=== PATIENT | male | born 1945 | race Caucasian/White ===

== ENCOUNTER 2020-03-04 05:45 | Inpatient (IN) | payer MEDICARE, OTHER ==
[2020-03-04] VITALS (46 sets, daily range): BP systolic 83–124; BP diastolic 39–72
[~2020-03-04] VITALS: Ht 175.3 cm; Wt 65.3 kg
[~2020-03-04 05:45] MED LIST: METO-624 PO; UNK BP MED; [UNRECOGNIZED DRUG - CODE] PO
--- NOTE | 2020-03-04 05:55 | NUR ---
PT TAKEN TO BED 11
--- NOTE | 2020-03-04 05:57 | NUR ---
Dr. Porter examining patient.
--- NOTE | 2020-03-04 06:00 | NUR ---
74M PT PRESENTS TO ED WITH C/O RAPID HEART RATE ON SET AROUND 0100 AM THIS MORNING. PT SVT @189. RADIAL PULSES PALPABLE AND STRONG. PT PLACED ON CARDIAC MONITORING AND EKG MONITORING. ACLS PRECAUTIONS IN PLACE. PT HAS HX OF A FIB NKA
--- NOTE | 2020-03-04 06:04 | NUR ---
HEART RATE 189. TRACE RHODES MADE AWARE.
[2020-03-04] MEDS ORDERED: NACL 0.9% 1,000 ML IV ONE ×3 (06:05→08:35)
[2020-03-04] MEDS ORDERED: ADENOSINE 6 MG/2 ML VIAL IVP ONE ×3 (06:05→06:45)
--- NOTE | 2020-03-04 06:10 | NUR ---
TRACE RHODES AT BEDSIDE.
--- NOTE | 2020-03-04 06:20 | NUR ---
ACLS PRECAUTIONS IN PLACE.
--- NOTE | 2020-03-04 06:21 | NUR ---
X-Ray at bedside.
--- NOTE | 2020-03-04 06:30 | NUR ---
ADENOSINE 6MG IVP ADMINISTERED. INEFFECTIVE AND HEART RATE SAME. NADR
[2020-03-04 06:33] LABS: BASOPHILS # (AUTO) 0.1 K/uL (0.00-0.22); BASOPHILS % (AUTO) 0.6 % (0.0-2.0); EOSINOPHILS # (AUTO) 0.1 K/uL (0-0.4); EOSINOPHILS % (AUTO) 1.3 % (0.0-4.0); HEMATOCRIT 43.6 % (36-52); HEMOGLOBIN 14.8 g/dL (12.0-18.0); LYMPHOCYTES % (AUTO) 19.7 % (20.5-51.1); MEAN CORPUSCULAR HEMOGLOBIN 32 pg (27-31); MEAN CORPUSCULAR HGB CONC 34 g/dL (33-37); MEAN CORPUSCULAR VOLUME 95.1 fL (80-94); MONOCYTES # (AUTO) 0.6 K/uL (0.8-1.0); MONOCYTES % (AUTO) 5.9 % (1.7-9.3); NEUTROPHILS # (AUTO) 7.4 K/uL (1.8-7.7); NEUTROPHILS % (AUTO) 72.5 % (42.2-75.2); PLATELET COUNT (AUTO) 272 K/uL (140-450); RED BLOOD CELL COUNT(AUTO) 4.59 MIL/uL (4.20-6.10); RED CELL DISTRIBUTION WIDTH 13.5 % (11.6-13.7); WHITE BLOOD COUNT (AUTO) 10.2 K/uL (4.8-10.8)
--- NOTE | 2020-03-04 06:35 | NUR ---
ADENOSINE 12MG IVP GIVEN. INEFFECTIVE AND HEART RATE SAME AT SVT 170-180s. NADR
[2020-03-04 06:41] LABS: ANION GAP 15.9 (8-16); CARBON DIOXIDE 24.2 mmol/L (21-32); CHLORIDE 108 mmol/L (98-107); CREATININE 1.2 mg/dL (0.6-1.3); GLUCOSE 130 mg/dL (74-106); POTASSIUM 4.1 mmol/L (3.5-5.1); SODIUM SERUM 144 mmol/L (136-145); UREA NITROGEN, BLOOD 15 mg/dL (7-18)
[2020-03-04] MEDS ORDERED: METOPROLOL 5 MG/5 ML VIAL IVP ONE ×3 (06:45→07:15)
[2020-03-04 06:48] LABS: ALBUMIN 3.8 g/dL (3.4-5.0); ASPARTATE AMINOTRANSFERASE 15 U/L (15-37); TOTAL BILIRUBIN 0.2 mg/dL (0.0-1.0)
[2020-03-04 06:56] LABS: PROTHROMBIN TIME 8.9 secs (10.8-13.4)
--- NOTE | 2020-03-04 06:59 | NUR ---
BP 92/49. TRACE RHODES MADE AWARE.
--- NOTE | 2020-03-04 07:14 | NUR ---
REPORT RECIEVED FROM TRINA RN, PT RESTING IN BED. PT ALERT AND AWAKE. FULL AND CLEAR SPEECH. HR CONTINUES TO FLUNCUATE BETWEEN 150S AND 180S PT STATES HISTORY OF APPENDECTOMY, PROSTATE CANCER, AND AFIB
--- NOTE | 2020-03-04 07:14 | NUR ---
VERBAL ORDER TO GIVE METROPOLOL 2.5 MG IVP INSTEAD OF 5 MG
--- NOTE | 2020-03-04 07:23 | NUR ---
CHANGE OF SHIFT REPORT GIVEN TO SHAWNEE ALVARADO.
--- NOTE | 2020-03-04 07:36 | NUR ---
DR DAWSON MADE AWARE OF PTS CURRENT HR-159
--- NOTE | 2020-03-04 07:42 | NUR ---
Dr. Jama is evaluating the patient at bedside.
[2020-03-04] MEDS ORDERED: DILTIAZEM 125 MG in DEXTROSE 5% 100 ML IV ONE (07:45)
[2020-03-04] MEDS ORDERED: DILTIAZEM 125 MG/25 ML VIAL IV ONE (07:51)
--- NOTE | 2020-03-04 08:05 | NUR ---
CARDIAZEM CONTINUOUS DRIP STARTED
--- NOTE | 2020-03-04 08:27 | NUR ---
NADR, PT HAS NO COMPLAINTS OF SOB OR CP. PAIN 0/10
--- NOTE | 2020-03-04 08:30 | NUR ---
BP 81/52, DR DAWSON MADE AWARE, VERBAL ORDER FOR ANOTHER NACL BOLUS
[2020-03-04] MEDS ORDERED: METO-747 PO (08:44)
[2020-03-04] MEDS ORDERED: AMLO5TAB PO (08:44)
[2020-03-04] MEDS ORDERED: SYN.075 PO (08:44)
--- NOTE | 2020-03-04 09:10 | NUR ---
PT IN BED. HR NOW 140-150S. BP 95/48. PT HAS NO COMPLAINTS AT THIS TIME. TALKING ON PHONE.
--- NOTE | 2020-03-04 09:30 | NUR ---
CARDIAZEM TITRATED BY ADDITIONAL 5MG/HR, NOW RUNNING AT 15MG/HR
--- NOTE | 2020-03-04 09:57 | NUR ---
hr 120s-130s
[2020-03-04] MEDS ORDERED: HYDROcodone/APAP 5/325 MG 1 TAB TAB PO PRN (10:05)
[2020-03-04] MEDS ORDERED: ALUMINUM HYD/MAG/SIMETHICONE 30 ML UDC PO PRN (10:05)
[2020-03-04] MEDS ORDERED: ONDANSETRON 4 MG/2 ML VIAL IVP PRN (10:05)
[2020-03-04] MEDS ORDERED: ACETAMINOPHEN 325 MG TAB PO PRN (10:05)
[2020-03-04] MEDS ORDERED: NITROGLYCERIN 0.4 MG TAB SL PRN (10:05)
--- NOTE | 2020-03-04 10:40 | NUR ---
Patient will be admitted to [facility]. Admited to ICU BED 5. Belongings list completed. Report to HALEY ALVARADO. ANOOP RUNNING AT 15MG/HR UPON ADMIT BP STABLE, HR 130'S
--- NOTE | 2020-03-04 10:40 | NUR ---
RECEIVED PT FROM ED. PT IS AWAKE AND ALERT. A&OX4. PT ABLE TO FOLLOW SIMPLE COMMANDS, ABLE TO SPEAK. GCS=15. EYES PERRL, 3MM. PT PLACED ON BED W/ HOB 30 DEGREES. PT HAS CLEAR LUNG SOUNDS, ON ROOM AIR. EQUAL RISE AND FALL OF THE CHEST. +2 RADIAL PULSES FELT. PT IS A-FIB ON MONITOR. HR RANGING BETWEEN 120-130. B/P 103/63 RR 19 SPO2 95%. TEMPERATURE 97.8 ORAL. PT HAS LEFT AND RIGHT AC PIV 20G. BOTH LINES ARE ASYMPTOMATIC, PATENT, INTACT. CARDIZEM DRIP RUNNING AT 15MG/HR. PT ABLE TO SWALLOW. BOWEL SOUNDS PRESENT. PT ABLE TO MOVE ALL FOUR EXTREMITIES W/ EASE. BED IS LOCKED IN LOW POSITION. CALL LIGHT PLACED WITHIN REACH. WILL CONTINUE TO MONITOR.
--- NOTE | 2020-03-04 10:52 | NUR ---
DISCHARGE PLANNING: THIS IS A 74 Y/O MALE PATIENT FROM HOME, WHO CAME IN DUE TO RACING HEART RATE AND CHEST PRESSURE. PAST MEDICAL HISTORY INCLUDE CARDIAC DISORDER, HTN. INITIAL DIAGNOSIS OF A FIB RVR. CURRENT LABS INCLUDE WBC 10.2, H/H 14.8/43.6, NA/K 144/4.1, BUN/CREA 15/1.2 AND MAG 1.6. ON CARDIZEM DRIP - AL 132. ON ROOM AIR - O2 SAT 95%. CARDIO CONSULT IN PLACE. DC PLAN PENDING ON PATIENT'S RESPONSE TO TREATMENT. Addendum: 03/05/20 at 1052 by Layla Miles RECEIVED A CALL FROM MARISSA BERNAL. UPDATED HER OF THE PATIENT'S CONDITION. SHE STATED IF WILL NEED HELP WITH DC, TO LET HER KNOW. INFORMED HER THAT PATIENT IS FOR POSSIBLE DOWNGRADE TO [facility] TODAY AND WILL UPDATE HER WITH DC PLANNING. Addendum: 03/05/20 at 1522 by Layla Miles CM RECEIVED A CALL FROM MARISSA BERNAL TO PROVIDE BATTERY INSPECTOR FOR OUT PATIENT FOLLOW UP DR. PARTHA MARTIN AT [phone], ADDRESS TO THE CLINIC [address], [address], [place] [address] AND PATIENT IS ENROLLED WITH THEIR [facility]ARE CLINIC AT [address] [facility], [address], [place] [address]; PHONE NUMBER [phone]. AUTH FOR CARDIO [id number] AND FOR CARE [facility] CLINIC [id number]. CONTACTED DR. MARTIN'S OFFICE, ABLE TO SPEAK TO [employer]. SHE STATED TO CALL BACK THE OFFICE IN 5 MINS. CONTACTED [facility], NO ANSWER. LEFT MESSAGE. WILL FOLLOW UP. Addendum: 03/05/20 at 1528 by Layla Miles CM PRIMARY RN MARSHA MADE AWARE THAT I TRIED CALLING DR. MARTIN'S OFFICE AND THE [facility]IN[facility] TO SET UP PDA'S. PROVIDED HIM THE PHONE NUMBER'S TO BOTH CLINICS TO PROVIDE TO THE PATIENT. Addendum: 03/05/20 at 1530 by Layla Miles CM CALLED BACK DR. MARTIN'S CLINIC AGAIN, NO ANSWER. LEFT MESSAGE AND CONTACT INFO. Addendum: 03/06/20 at 0850 by Layla Miles CM CONTACTED MARISSA GALL[facility] AT [phone], NO ANSWER. LEFT MESSAGE. Addendum: 03/06/20 at 0940 by Lisbeth Almazan CM SPOKE WITH YAJAIRA TO SCHEDULE PATIENT AN APPOINTMENT WITH BATTERY INSPECTOR DR. MARTIN. MARCH 17, 2020 AT 2:00 PM. IN OFFICE VISIT [address] [place], [place] [phone]. WILL NOTIFY PATIENT AND GIVE APPOINTMENT REMINDER. Addendum: 03/06/20 at 0957 by Lisbeth Almazan NOTIFIED PATIENTS BROTHER OF APPOINTMENT AND PUT AN APPOINTMENT REMINDER IN THE PATIENTS CHART.
[2020-03-04] MEDS ORDERED: HEPARIN PER PHARMACY MC PRN (11:40)
[2020-03-04] MEDS ORDERED: NACL 0.9% 250 ML IV SCH (11:40)
[2020-03-04] MEDS ORDERED: hePARIN / DEXT 5% PREMIX 250 ML IV SCH ×2 (11:40→13:00)
[2020-03-04] MEDS: ASPIRIN 81 MG TAB.CHEW PO SCH (12:06)
--- NOTE | 2020-03-04 12:20 | NUR ---
PATIENT HAS BEEN SCREENED AND CATEGORIZED HIGH NUTRITION RISK. PATIENT WILL BE SEEN WITHIN 1-2 DAYS OF ADMISSION. 03/04/20-03/05/[address]
[2020-03-04] MEDS ORDERED: MAG SULF 2000 MG/WATER PREMIX 50 ML IV SCH (13:00)
--- NOTE | 2020-03-04 13:15 | NUR ---
PT STARTED ON MAGNESIUM AND HEPARIN DRIP. NO APPARENT DISTRESS NOTED. PT WATCHING TELEVISION. VSS. HOB 30 DEGREES. BED IS LOCKED. CALL LIGHT WITHIN REACH. WILL CONTINUE TO MONITOR
--- NOTE | 2020-03-04 13:46 | NUR ---
03/04/20 RD INITIAL ASSESSMENT COMPLETED PLEASE REFER TO NUTRITION ASSESSMENT UNDER CARE ACTIVITY FOR ESTIMATED NUTRITIONAL NEEDS. 1. CONTINUE CARDIAC DIET TOLERATED 2. RECOMMEND ENSURE BID 3. ENCOURAGE INCREASING PO INTAKE 4. RD TO FOLLOW-UP 2-3 DAYS, HIGH RISK LUZMA SYED, RD
[2020-03-04] MEDS: DILTIAZEM 125 MG in DEXTROSE 5% 100 ML IV SCH (17:16)
--- NOTE | 2020-03-04 19:15 | NUR ---
GAVE CHANGE OF SHIFT REPORT TO DIRECTOR ADVANCED NURSE TO ENSURE CONTINUITY OF CARE
--- NOTE | 2020-03-04 19:15 | NUR ---
BEDSIDE REPORT RECEIVED FROM AM SHIFT RN. PT AWAKE, ALERT AND ORIENTED X4. AFIB ON MONITOR. ON ROOM AIR. IV SITE RIGH AC 20 GAUGE, INTACT, PATENT, SALINE LOCKED. L HAND 22 GAUGE AND LAC 20 GAUGE INFUSING CARDIZEM DRIP 15ML/HR AND HEPARIN 800 UNITS/HR. SKIN WARM, DRY, INTACT. SAFETY PRECAUTIONS IN PLACE. WILL CONTINUE TO MONITOR.
[2020-03-04] MEDS ORDERED: METOPROLOL 25 MG TAB PO SCH (21:00)
[2020-03-04] MEDS: METOPROLOL 50 MG TAB PO SCH (21:00)
--- NOTE | 2020-03-04 21:00 | NUR ---
METOPROLOL MEDICATION HELD PER PARAMETERS. CURRENT BLOOD PRESSURE, 99/57.
--- NOTE | 2020-03-04 22:52 | NUR ---
METOPROLOL MEDICATION HELD PER PARAMETERS. CURRENT BLOOD PRESSURE, 99/57. Addendum: 03/04/20 at 2255 by Kevin Castrejon RN DOCUMENTED ON WRONG TIME. PLS DISREGARD.
[2020-03-05] VITALS (40 sets, daily range): BP systolic 81–115; BP diastolic 42–78
--- NOTE | 2020-03-05 00:08 | NUR ---
BARREL BURNER AT BEDSIDE TO DRAW LABS.
[2020-03-05] MEDS: DILTIAZEM 125 MG in DEXTROSE 5% 100 ML IV SCH (00:22)
[2020-03-05] MEDS ORDERED: ALBUMIN HUMAN 25% 50 ML IV ONE (01:40)
--- NOTE | 2020-03-05 01:53 | NUR ---
SPOKE WITH DR GIBBS VIA TELEPHONE, NOTIFIED OF PT's HR in the 130s AND SYSTOLIC BLOOD PRESSURE LESS 100. ORDERS TO CONTINUE CARDIZEM DRIP AND GIVE ALBUMIN 25%, 50ML ONE TIME. WILL CONTINUE TO MONITOR.
--- NOTE | 2020-03-05 02:00 | NUR ---
HELD CARDIZEM DRIP, HEART RATE AT 59 BPM. WILL CONTINUE TO MONITOR.
--- NOTE | 2020-03-05 04:50 | NUR ---
PT IS SINUS RHYTHM ON MONITOR. CARDIZEM DRIP OFF. WILL CONTINUE TO MONITOR.
[2020-03-05 05:50] LABS: BASOPHILS % (AUTO) 0.4 % (0.0-2.0); EOSINOPHILS # (AUTO) 0.1 K/uL (0-0.4); EOSINOPHILS % (AUTO) 1.1 % (0.0-4.0); HEMATOCRIT 34.8 % (36-52); HEMOGLOBIN 11.7 g/dL (12.0-18.0); LYMPHOCYTES # (AUTO) 1.7 K/uL (2.0-11.5); LYMPHOCYTES % (AUTO) 20.5 % (20.5-51.1); MEAN CORPUSCULAR HEMOGLOBIN 32 pg (27-31); MEAN CORPUSCULAR HGB CONC 34 g/dL (33-37); MEAN CORPUSCULAR VOLUME 95.1 fL (80-94); MONOCYTES # (AUTO) 0.5 K/uL (0.8-1.0); MONOCYTES % (AUTO) 5.5 % (1.7-9.3); NEUTROPHILS # (AUTO) 6.1 K/uL (1.8-7.7); NEUTROPHILS % (AUTO) 72.5 % (42.2-75.2); PLATELET COUNT (AUTO) 207 K/uL (140-450); RED BLOOD CELL COUNT(AUTO) 3.66 MIL/uL (4.20-6.10); RED CELL DISTRIBUTION WIDTH 13.2 % (11.6-13.7); WHITE BLOOD COUNT (AUTO) 8.5 K/uL (4.8-10.8)
[2020-03-05 06:20] LABS: ANION GAP 11.8 (8-16); CARBON DIOXIDE 23.9 mmol/L (21-32); CHLORIDE 109 mmol/L (98-107); CREATININE 0.8 mg/dL (0.6-1.3); GLUCOSE 114 mg/dL (74-106); MAGNESIUM 1.8 mg/dL (1.8-2.4); PHOSPHORUS 2.5 mg/dL (2.5-4.9); POTASSIUM 3.7 mmol/L (3.5-5.1); SODIUM SERUM 141 mmol/L (136-145); UREA NITROGEN, BLOOD 10 mg/dL (7-18)
[2020-03-05 06:40] LABS: FREE T4 (FREE THYROXINE) 1.24 ng/dL (0.76-1.46); THYROID STIMULATING HORMONE 1.44 uIU/mL (0.34-3.74)
--- NOTE | 2020-03-05 06:42 | NUR ---
PT IS SINUS RHYTHM ON MONITOR. RESPIRATIONS EVEN AND UNLABORED. CHEST RISE SYMMETRICAL. PT IS AWAKE, ABLE TO MAKE NEEDS KNOWN. WATCHING TELEVISION. SAFETY PRECAUTIONS IN PLACE. WILL CONTINUE TO MONITOR.
--- NOTE | 2020-03-05 07:15 | NUR ---
BEDSIDE REPORT GIVEN TO AM SHIFT RN FOR CONTINUITY OF CARE.
--- NOTE | 2020-03-05 07:25 | NUR ---
RECEIVED BEDSIDE REPORT FROM COMMERCIAL CREDIT LEAD NURSE. PT AWAKE, ALERT AND ORIENTED X4. SR ON MONITOR. BILATERAL RADIAL PULSES PALPABLE. NO SOB ON ROOM AIR. IV CATH TO LEFT AC 20 GAUGE, INTACT, PATENT, RUNNING HEPARIN DRIP AT 900UNITS/HR. L WRIST 22 GAUGE, SL AND R AC 20 GAUGE, SL. SBP IN THE 90S AND LOW 100S, DILTIAZEM DRIP BEING HELD. SKIN WARM, DRY, INTACT. SAFETY PRECAUTIONS IN PLACE.
[2020-03-05] MEDS ORDERED: LEVOTHYROXINE 0.075 MG TAB PO SCH (07:30)
[2020-03-05] MEDS: ASPIRIN 81 MG TAB.CHEW PO SCH (08:13)
[2020-03-05] MEDS: METOPROLOL 50 MG TAB PO SCH ×2 (08:15→21:29)
--- NOTE | 2020-03-05 08:15 | NUR ---
PT REFUSED COLACE, LBM 03/02. PT DENIES ANY PAIN. NO COMPLAINS.
[2020-03-05] MEDS: DOCUSATE 100 MG/10 ML UDC PO SCH (08:24)
--- NOTE | 2020-03-05 08:40 | NUR ---
DR BENZ (CARDIO) SEEN PT ALREADY AND HE HAS SOME RECOMMENDATIONS. ASKED IF HE IS GOING TO PUT ORDERS IN, DR BENZ SAID WILL TEXT DR ROULA MAYEN AND LET HIM PUT ORDERS IN.
--- NOTE | 2020-03-05 09:00 | NUR ---
DR CELESTE WAS PAGED AND CALLED BACK. ASKED IF DR CELESTE RECEIVED MESSAGE FROM DR BENZ. DR CELESTE SAID NOT YET, ONCE HE RECEIVES THE MESSAGE HE WILL PUT THE ORDERS IN.
[2020-03-05] MEDS ORDERED: DILTIAZEM 30 MG TAB PO SCH (13:45)
[2020-03-05] MEDS ORDERED: DILTIAZEM 120 MG CAPER PO SCH (13:50)
[2020-03-05] MEDS ORDERED: DILT120C13 PO (13:52)
[2020-03-05] MEDS ORDERED: RIVA15TA1 PO (13:52)
[2020-03-05] MEDS ORDERED: DILTIAZEM 30 MG TAB PO PRN (14:30)
--- NOTE | 2020-03-05 14:40 | NUR ---
DR ROULA MAYEN SEEN PT. HE SAID TO START XARELTO 20MG AND PO 120MG CARDIZEM ER NOW AND DAILY AFTER, STOP HEPARIN DRIP AND CARDIZEM DRIP. OK TO TRANSFER TO TELE.
[2020-03-05] MEDS ORDERED: RIVA20TA4 PO (14:41)
[2020-03-05] MEDS ORDERED: RIVAROXABAN 10 MG TAB PO SCH (15:00)
[2020-03-05] MEDS: DILTIAZEM 120 MG CAPER PO SCH (15:05)
--- NOTE | 2020-03-05 19:20 | NUR ---
GAVE REPORT TO ESCROW SECRETARY NURSE FOR CONTINUITY OF CARE. PATIENT IN STABLE CONDITION.
--- NOTE | 2020-03-05 19:30 | NUR ---
RECEIVED REPORT FROM DAY RN. PATIENT LAYING IN BED WATCHING TV. NO SIGN AND SYMPTOMS OF DISTRESS NOTED AT THIS TIME. DENIES ANY CHEST PAIN, PALPITATION AND SOB. SR ON APPLICATIONS TESTER, HR 72. PLAN OF CARE DISCUSSED WITH THE PATIENT AND VERBALIZED UNDERSTANDING. NO COMPLAIN AT THIS TIME. INSTRUCTED TO CALL IF PT NEED ANYTHING. CALL LIGHT WITHIN REACH. WILL CONTINUE POC AND MONITORING.
--- NOTE | 2020-03-05 21:30 | NUR ---
PT ABLE TO WALK IN THE ROOM WITH NO DISTRESS. GAVE SCHEDULED MEDICATION ORDERED. PATIENT TOLERATED IT WELL. NO SWALLOWING PROBLEM NOTED. SAFETY PRECAUTION IMPLEMENTED.CALL LIGHT WITHIN REACH.
--- NOTE | 2020-03-05 23:30 | NUR ---
PT SLEEPING AT THIS TIME. NO S/SX OF DISTRESS NOTED. CALL LIGHT WITHIN REACH.
[2020-03-06 00:10] VITALS: BP 94/54
--- NOTE | 2020-03-06 01:30 | NUR ---
MADE ROUNDS. PATIENT CONTINUOUSLY SLEEPING . NO SIGN AND SYMPTOMS OF DISTRESS NOTED. CALL LIGHT WITHIN REACH. WILL CONTINUE POC AND MONITORING.
[2020-03-06 04:00] VITALS: BP 114/63
--- NOTE | 2020-03-06 04:00 | NUR ---
WOKE PATIENT UP TO CHECK VITAL SIGNS. NO COMPLAIN OF ANYTHING AT THIS TIME. NOT IN ANY DISTRESS.VSS, AFEBRILE, SATING 96% ON RA. CALL LIGHT WITHIN REACH. WILL CONTINUE POC AND MONITORING.
--- NOTE | 2020-03-06 06:15 | NUR ---
PATIENT AWAKE NOW AND SITTING UP IN BED WATCHING TV. NO COMPLAIN AT THIS TIME. CALL LIGHT WITHIN REACH. WILL ENDORSE THE PATIENT TO THE ONCOMING RN FOR CONTINUITY OF CARE. CALL LIGHT WITHIN REACH.
[2020-03-06 06:24] LABS: BASOPHILS % (AUTO) 0.3 % (0.0-2.0); EOSINOPHILS # (AUTO) 0.1 K/uL (0-0.4); EOSINOPHILS % (AUTO) 1.8 % (0.0-4.0); HEMOGLOBIN 12.3 g/dL (12.0-18.0); LYMPHOCYTES # (AUTO) 1.3 K/uL (2.0-11.5); LYMPHOCYTES % (AUTO) 20.8 % (20.5-51.1); MEAN CORPUSCULAR HEMOGLOBIN 33 pg (27-31); MEAN CORPUSCULAR HGB CONC 35 g/dL (33-37); MEAN CORPUSCULAR VOLUME 93.6 fL (80-94); MONOCYTES # (AUTO) 0.4 K/uL (0.8-1.0); MONOCYTES % (AUTO) 6.7 % (1.7-9.3); NEUTROPHILS # (AUTO) 4.5 K/uL (1.8-7.7); NEUTROPHILS % (AUTO) 70.4 % (42.2-75.2); PLATELET COUNT (AUTO) 203 K/uL (140-450); RED BLOOD CELL COUNT(AUTO) 3.74 MIL/uL (4.20-6.10); RED CELL DISTRIBUTION WIDTH 12.9 % (11.6-13.7); WHITE BLOOD COUNT (AUTO) 6.5 K/uL (4.8-10.8)
[2020-03-06 06:52] LABS: CARBON DIOXIDE 27.7 mmol/L (21-32); CHLORIDE 106 mmol/L (98-107); CREATININE 0.8 mg/dL (0.6-1.3); GLUCOSE 102 mg/dL (74-106); POTASSIUM 3.7 mmol/L (3.5-5.1); SODIUM SERUM 142 mmol/L (136-145); UREA NITROGEN, BLOOD 9 mg/dL (7-18)
[2020-03-06 07:05] LABS: MAGNESIUM 1.7 mg/dL (1.8-2.4); PHOSPHORUS 3.1 mg/dL (2.5-4.9)
--- NOTE | 2020-03-06 07:18 | NUR ---
ENDORSED PATIENT TO THE ONCOMING RN ESTELLA FOR CONTINUITY OF CARE. PATIENT STABLE, NOT IN ANY DISTRESS. NO COMPLAIN AT THIS TIME. CALL LIGHT WITHIN REACH. SIGNING OFF.
[2020-03-06 08:00] VITALS: BP 123/57
--- NOTE | 2020-03-06 08:02 | NUR ---
RECEIVED REPORT FROM PERINATAL TECHNICIAN RN FOR CONTINUITY OF CARE. PATIENT IS LAYING IN BED BUT AWAKE. PT IS AAXO4, AMBULATORY AND ABLE TO MAKE NEEDS KNOWN. PT ON RA SATING 98%. PT SKIN INTACT. PLAN OF CARE DISCUSSED WITH THE PATIENT AND PT VERBALIZED UNDERSTANDING. DENIES PAIN AT THIS TIME. ALL SAFETY MEASURES IN PLACE. CALL LIGHT WITHIN REACH. BED IN LOW POSITION. WILL ROUND FREQUENTLY THROUGHOUT THE SHIFT.
[2020-03-06] MEDS: DILTIAZEM 120 MG CAPER PO SCH (09:00)
[2020-03-06] MEDS: ASPIRIN 81 MG TAB.CHEW PO SCH (09:00)
[2020-03-06] MEDS ORDERED: RIVAROXABAN 15 MG TAB PO SCH (09:00)
[2020-03-06] MEDS: METOPROLOL 50 MG TAB PO SCH (09:00)
[2020-03-06] MEDS: DOCUSATE 100 MG/10 ML UDC PO SCH (09:00)
--- NOTE | 2020-03-06 09:47 | NUR ---
ADMIN MED. PT TOLERATED WELL.
[2020-03-06] MEDS ORDERED: MAG SULF 2000 MG/WATER PREMIX 50 ML IV SCH (10:00)
--- NOTE | 2020-03-06 11:20 | NUR ---
PT RESTING IN BED. ALL NEEDS MET.
[2020-03-06 12:00] VITALS: BP 121/67
--- NOTE | 2020-03-06 13:30 | NUR ---
PT ASLEEP. ALL NEEDS MET
--- NOTE | 2020-03-06 15:28 | NUR ---
PT SITTING UP IN BED. ALL NEEDS MET.
--- NOTE | 2020-03-06 15:49 | NUR ---
03/06/20 RD FOLLOW UP COMPLETED PLEASE REFER TO NUTRITION ASSESSMENT UNDER CARE ACTIVITY FOR ESTIMATED NUTRITIONAL NEEDS. 1. CONTINUE MECHANICAL SOFT CARDIAC DIET TOLERATED 2. CONTINUE ENSURE BID 3. ENCOURAGE INCREASING PO INTAKE 4. RD TO FOLLOW-UP 3-5 DAYS, MODERATE RISK LUZMA SYED, KARLA
[2020-03-06 16:00] VITALS: BP 104/57
[2020-03-06] MEDS ORDERED: RIVAROXABAN 10 MG TAB PO SCH (17:00)
--- NOTE | 2020-03-06 17:20 | NUR ---
PT AWAITING RIDE. ALL NEEDS MET.
--- NOTE | 2020-03-06 17:54 | NUR ---
PT DC HOME FOR SELF CARE. PT VERBALIZED UNDERSTANDING TO D/C TEACHING. PT GIVEN PRESCRIPTION TO HAVE FILLED AT LOCAL PHARMACY. PT VERBALIZED UNDERSTANDING. PT IV REMOVED WITH TIP INTACT. ALL PERSONAL BELONGINGS TAKEN HOME WITH PT. PT SIGNED ALL DC PAPERWORK. PT LEFT IN STABLE CONDITION ACCOMPANIED BY BROTHER.
== END 2020-03-06 17:05 | disposition home or self-care (01) | DRG 309 ==
LOC: MED 05:45 → MIC 10:02 → MMU 03-05 19:00
PROVIDERS: ADMIT Hospitalist; ATTEND Hospitalist
DX: I48.91 Unspecified atrial fibrillation (principal); R65.10 Systemic inflammatory response syndrome (SIRS) of non-infectious origin without acute organ dysfunction; I25.10 Atherosclerotic heart disease of native coronary artery without angina pectoris; E83.42 Hypomagnesemia; I10 Essential (primary) hypertension; I73.9 Peripheral vascular disease, unspecified; E78.5 Hyperlipidemia, unspecified; E03.9 Hypothyroidism, unspecified; Z82.49 Family history of ischemic heart disease and other diseases of the circulatory system
CPT/HCPCS: 36415; 71045; 80048; 80053; 83721; 83735; 83880; 84100; 84439; 84443; 84484; 85025; 85610; 85730; 87081; 93005; 96365; 96366; 96375; 99291; J0153; J1644; J3475; J3490; J7030; J7060; P9046; Q0092

== ENCOUNTER 2021-02-11 21:08 | Inpatient (IN) | payer MEDICARE, OTHER, SELFPAY ==
[~2021-02-11] VITALS: Ht 177.8 cm; Wt 59.9 kg
[~2021-02-11 21:08] MED LIST changes: +AMLO5TAB PO; +DILT120C13 PO; -METO-624 PO; +METO-747 PO; +RIVA15TA1 PO; +SYN.075 PO; -UNK BP MED; -[UNRECOGNIZED DRUG - CODE] PO
[2021-02-11 21:19] VITALS: BP 132/76
--- NOTE | 2021-02-11 21:21 | NUR ---
To ED bed 01
--- NOTE | 2021-02-11 21:30 | NUR ---
RECEIVED IIN BED AND ATTACHED TO BUSINESS OWNER/ENGINEER = A-FIB WITH RVR. HR 140 - 148. IS AWAKE AND ALERT, SKIN WARM AND DRY
[2021-02-11] MEDS ORDERED: DILTIAZEM 25 MG/5 ML VIAL IVP ONE ×2 (21:40→22:15)
[2021-02-11 22:08] LABS: BASOPHILS # (AUTO) 0.1 K/uL (0.00-0.22); BASOPHILS % (AUTO) 0.7 % (0.0-2.0); EOSINOPHILS # (AUTO) 0.2 K/uL (0-0.4); EOSINOPHILS % (AUTO) 2.8 % (0.0-4.0); HEMATOCRIT 40.7 % (36-52); HEMOGLOBIN 14.1 g/dL (12.0-18.0); LYMPHOCYTES # (AUTO) 2.3 K/uL (2.0-11.5); MEAN CORPUSCULAR HEMOGLOBIN 32 pg (27-31); MEAN CORPUSCULAR HGB CONC 35 g/dL (33-37); MEAN CORPUSCULAR VOLUME 92.6 fL (80-94); MONOCYTES # (AUTO) 0.7 K/uL (0.8-1.0); MONOCYTES % (AUTO) 8.6 % (1.7-9.3); NEUTROPHILS % (AUTO) 59.9 % (42.2-75.2); PLATELET COUNT (AUTO) 252 K/uL (140-450); RED BLOOD CELL COUNT(AUTO) 4.39 MIL/uL (4.20-6.10); RED CELL DISTRIBUTION WIDTH 13.4 % (11.6-13.7); WHITE BLOOD COUNT (AUTO) 8.4 K/uL (4.8-10.8)
--- NOTE | 2021-02-11 22:15 | NUR ---
ADDITIONAL CARDIZEM 20MG GIVEN SLOW IVP
[2021-02-11] MEDS ORDERED: NACL 0.9% 1,000 ML IV ONE ×2 (22:25→23:10)
[2021-02-11 22:30] LABS: ALBUMIN 3.7 g/dL (3.4-5.0); ASPARTATE AMINOTRANSFERASE 15 U/L (15-37); CARBON DIOXIDE 27.8 mmol/L (21-32); CHLORIDE 105 mmol/L (98-107); CREATININE 1.1 mg/dL (0.6-1.3); GLUCOSE 117 mg/dL (74-106); POTASSIUM 3.8 mmol/L (3.5-5.1); SODIUM SERUM 139 mmol/L (136-145); TOTAL BILIRUBIN 0.2 mg/dL (0.0-1.0); UREA NITROGEN, BLOOD 19 mg/dL (7-18)
[2021-02-11 22:50] LABS: PROTHROMBIN TIME 9.2 secs (10.8-13.4)
[2021-02-11] MEDS ORDERED: AMIODARONE 450 MG in DEXTROSE 5% 250 ML IV ONE (23:10)
[2021-02-11] MEDS ORDERED: AMIODARONE 150 MG in DEXTROSE 5% 100 ML IV ONE (23:10)
[2021-02-11] MEDS ORDERED: AMIODARONE 150 MG/3 ML VIAL IV ONE ×2 (23:24→23:39)
[2021-02-11] MEDS ORDERED: RIVAROXABAN 15 MG TAB PO SCH (23:30)
[2021-02-12] VITALS (19 sets, daily range): BP systolic 86–148; BP diastolic 47–81
[2021-02-12] MEDS ORDERED: POTASSIUM CHLORIDE 10 MEQ TABER PO PRN (00:30)
[2021-02-12] MEDS ORDERED: LORazepam 1 MG TAB PO PRN (00:30)
[2021-02-12] MEDS ORDERED: ACETAMINOPHEN 325 MG TAB PO PRN (00:30)
[2021-02-12] MEDS ORDERED: KCL 20 MEQ/WATER INJ PREMIX 200 ML IV PRN (00:30)
[2021-02-12] MEDS ORDERED: HYDROcodone/APAP 5/325 MG 1 TAB TAB PO PRN (00:30)
[2021-02-12] MEDS ORDERED: MAG SULF 2000 MG/WATER PREMIX 50 ML IV PRN (00:30)
[2021-02-12] MEDS ORDERED: MAGNESIUM OXIDE 400 MG TAB PO PRN (00:30)
[2021-02-12] MEDS ORDERED: ONDANSETRON 4 MG/2 ML VIAL IVP PRN (00:30)
[2021-02-12] MEDS ORDERED: ZOLPIDEM 5 MG TAB PO PRN (00:30)
[2021-02-12] MEDS ORDERED: AMIODARONE 450 MG in DEXTROSE 5% 250 ML IV SCH (00:45)
--- NOTE | 2021-02-12 01:05 | NUR ---
pt to be admitted under the care of Dr. Goldberg. admitted to ICU bed 04. pt endorsed to OPTICAL MECHANICJENNY Edwards. pt currently a/o x 4, gcs 15. able to move all extremities freely. currenly on amio drip running 1mg/mn. VSS.
--- NOTE | 2021-02-12 01:05 | NUR ---
RECIEVED PT ADMIT FROM ED NURSE RAY, PT A&0X4, ABLE TO MAKE NEEDS KNOWN, ABLE TO AMBULATE WITH ASSISTANCE, GCS 15, AFEBRILE, AFIB ON MONITOR, PT ON ROOM AIR, BP 127/77 HR 124, SPO2 95%, RR 19, SKIN WARM AND DRY TO TOUCH, INTACT, PT ABLE TO USE BEDSIDE URINAL, LAC 18 G SALINE LOCKED, RAC 18 G INFUSING AMIODARONE @ 1MG/MIN, PT SHOWING NO SIGNS OF ACUTE DISTRESS, SAFETY MEASURES IN PLACE, PT BELONGINGS AT BESIDE (CELLPHONE, WATCH, CLOTHES AND TOOTHBRUSH), WILL CONTINUE WITH CURRENT POC
[2021-02-12] MEDS: NACL 0.9% 1,000 ML IV SCH ×2 (03:14→16:29)
--- NOTE | 2021-02-12 03:15 | NUR ---
STARTED NS @ 75MLS/HR
--- NOTE | 2021-02-12 03:17 | NUR ---
DR WHYTE AT BEDSIDE
[2021-02-12 04:09] LABS: APPEARANCE,URINE CLEAR (CLEAR); BILIRUBIN,URINE NEGATIVE (NEGATIVE); BLOOD, URINE TRACE-I (NEGATIVE); COLOR,URINE YELLOW (YELLOW); LEUKOCYTE ESTERASE ,URINE NEGATIVE (NEGATIVE); NITRITE, URINE NEGATIVE (NEGATIVE); UGLUCOSE NEGATIVE (NEGATIVE)
[2021-02-12 04:45] LABS: RBC,URINE 0-5 /HPF (0-5); WBC,URINE 0-5 /HPF (0-5)
[2021-02-12 04:50] LABS: BARBITURATE, URINE NEGATIVE ng/ml (NEG <=200); BENZODIAZEPINE, URINE NEGATIVE ng/mL (NEG <=200); CANNABINOID, URINE NEGATIVE ng/mL (NEG <=50); COCAINE, URINE NEGATIVE ng/mL (NEG <=300); OPIATE, URINE NEGATIVE ng/mL (NEG <=2000); PHENCYCLIDINE SCREEN,URINE NEGATIVE ng/mL (NEG <=25)
[2021-02-12] MEDS: LEVOTHYROXINE 0.075 MG TAB PO SCH (05:51)
--- NOTE | 2021-02-12 05:51 | NUR ---
ADMINISTERED 0630H MEDICATION PER MD ORDER, PT SHOWING NO SIGNS OF ACUTE DISTRESS
--- NOTE | 2021-02-12 07:03 | NUR ---
ENDORSED TO DAY SHIFT RN FOR CONTINUITY OF CARE
--- NOTE | 2021-02-12 07:32 | NUR ---
REC'D REPORT FROM MAINFRAME ARCHITECT NURSE, PT ON TELEMONITOR, A/Ox4, RA. R.AC 18G DRY CLEAN, INTACT,PATENT. INFUSING AMIODARONE 0.5ML/HR,NSAT 75ML/HR, NO PHLEBITIS OR INFILTRATION NOTED. L. AC 18G SL. S1S2, BILATERAL LUNGS CLEAR UPON AUSCULTATION. NORMAL BOWEL SOUNDS, NO PERIPHERAL EDEMA NOTES. PT STATES PALPITATIONS ARE IMPROVING FROM WHEN HE ORIGINALLY CHECKED IN. SKIN NORMAL FOR ETHNICITY. PT CAN VERBALIZE NEEDS, ALL SAFETY MEASURES IN PLACE. WILL CONTINUE TO MONITOR
--- NOTE | 2021-02-12 08:30 | NUR ---
PT STABLE, NO SIGN OF DISTRESS, DISCUSSED USE OF MEDICATION FOR 24H PERIOD TO HELP WITH DYSRHYTHMIA, PT VERBALIZED UNDERSTANDING. WILL CONTINUE TO MONITOR
--- NOTE | 2021-02-12 08:49 | NUR ---
PATIENT HAS BEEN SCREENED AND CATEGORIZED LOW NUTRITION RISK. PATIENT WILL BE SEEN WITHIN 7 DAYS OF ADMISSION. 02/18/[address]
--- NOTE | 2021-02-12 08:50 | NUR ---
ADMINISTERED IV MEDICATION PER MD ORDER, IV SITE PATENT, MOA AND SIDE EFFECTS HAVE BEEN PREVIOUSLY DISCUSSED WITH PT WHO VERBALIZED UNDERSTANDING. WILL CONTINUE TO MONITOR.
[2021-02-12] MEDS ORDERED: METOPROLOL SUCCINATE 50 MG TABER PO SCH (09:00)
[2021-02-12] MEDS ORDERED: amLODIPine 5 MG TAB PO SCH (09:00)
[2021-02-12] MEDS: NICOTINE TRANSD SYS 21 MG/24 HR PATCH TD SCH ×2 (09:00→09:07)
[2021-02-12] MEDS ORDERED: DILTIAZEM HCL PO SCH (09:00)
[2021-02-12] MEDS: PANTOPRAZOLE 40 MG INJ VIAL IVP SCH (09:07)
[2021-02-12] MEDS: DOCUSATE SODIUM 100 MG GELCAP PO SCH (09:07)
--- NOTE | 2021-02-12 09:17 | NUR ---
ADMINISTERED MEDICATION PER MD ORDER, MOA AND SIDE EFFECTS DISCUSSED WITH PT WHO VERBALIZED UNDERSTANDING. PT REFUSED NICOTINE PATCH AT THIS TIME, STATED HE DID NOT FEEL THE NEED TO HAVE IT. ENCOURAGED PT TO NOTIFY NURSE IF HE BEGAN FEELING CRAVINGS OR EXPERIENCING JITTERINESS. PT VERBALIZED UNDERSTANDING. IV SITE WAS FLUSHED PRIOR TO IV MEDICATION ADMINISTRATION AND AFTERWARDS. PT TOLERATED MEDICATION ADMINISTRATION WELL. NO SIGN OF DISTRESS
--- NOTE | 2021-02-12 09:58 | NUR ---
DR. GIBBS AT BEDSIDE TO EVALUATE PT
[2021-02-12] MEDS: METOPROLOL 25 MG TAB PO SCH ×3 (10:04→21:26)
--- NOTE | 2021-02-12 10:08 | NUR ---
ADMINISTERED PO MEDICATION PER MD ORDER, MOA AND SIDE EFFECTS DISCUSSED WITH PT.WHO VERBALIZED UNDERSTANDING. NO SIGN OF DISTRESS, DENIES PAIN AT THIS TIME.
--- NOTE | 2021-02-12 10:31 | NUR ---
PT CONTACTED BROTHER VIA TELEPHONE TO OBTAIN NAMES OF HOME MEDICATION. PER PT, BROTHER WILL DROP OFF HOME MEDS AT [employer].
[2021-02-12 10:49] LABS: BASOPHILS % (AUTO) 0.3 % (0.0-2.0); EOSINOPHILS # (AUTO) 0.1 K/uL (0-0.4); EOSINOPHILS % (AUTO) 1.6 % (0.0-4.0); HEMOGLOBIN 13.5 g/dL (12.0-18.0); LYMPHOCYTES # (AUTO) 1.5 K/uL (2.0-11.5); LYMPHOCYTES % (AUTO) 19.7 % (20.5-51.1); MEAN CORPUSCULAR HEMOGLOBIN 32 pg (27-31); MEAN CORPUSCULAR HGB CONC 35 g/dL (33-37); MEAN CORPUSCULAR VOLUME 93.7 fL (80-94); MONOCYTES # (AUTO) 0.6 K/uL (0.8-1.0); MONOCYTES % (AUTO) 7.8 % (1.7-9.3); NEUTROPHILS # (AUTO) 5.5 K/uL (1.8-7.7); NEUTROPHILS % (AUTO) 70.6 % (42.2-75.2); PLATELET COUNT (AUTO) 214 K/uL (140-450); RED BLOOD CELL COUNT(AUTO) 4.17 MIL/uL (4.20-6.10); RED CELL DISTRIBUTION WIDTH 13.4 % (11.6-13.7); WHITE BLOOD COUNT (AUTO) 7.8 K/uL (4.8-10.8)
[2021-02-12 11:02] LABS: ALBUMIN 3.3 g/dL (3.4-5.0); ANION GAP 9.6 (8-16); ASPARTATE AMINOTRANSFERASE 15 U/L (15-37); CARBON DIOXIDE 24.3 mmol/L (21-32); CHLORIDE 109 mmol/L (98-107); CREATININE 0.7 mg/dL (0.6-1.3); GLUCOSE 111 mg/dL (74-106); MAGNESIUM 1.9 mg/dL (1.8-2.4); PHOSPHORUS 2.5 mg/dL (2.5-4.9); POTASSIUM 3.9 mmol/L (3.5-5.1); SODIUM SERUM 139 mmol/L (136-145); TOTAL BILIRUBIN 0.5 mg/dL (0.0-1.0); UREA NITROGEN, BLOOD 13 mg/dL (7-18)
--- NOTE | 2021-02-12 11:22 | NUR ---
PT SLEEPING, NO SIGN OF DISTRESS. ALL SAFETY MEASURES IN PLACE.
--- NOTE | 2021-02-12 11:30 | NUR ---
DC PLANNIN YRS OLD MALE PATIENT WAS ADMITTED FROM HOME WITH A DX OF A-FIB WITH RVR. PT HAS A HX OF A-FIB ON ANTICOAGULANTS AND HTN. CXR SHOWED NON SPECIFIC INCREASE IN INTERSTITIAL LUNG MARKINGS. RAPID COVID TEST NEGATIVE. HR WAS 169 ON ADMISSION STARTED AMIODARONE DRIP AND HR 119. ADMINISTERED IVF, AND CONTINUE HOME MEDS. CONSULTED WITH ACCOUNTANT CERTIFIED PUBLIC AND PULMO DC PLAN TO GO HOME WHEN STABLE CM TO FOLLOW Addendum: 02/12/21 at 1139 by Radha Michaels RN DC PLANNING: CALLED [facility] SPOKE WITH MELVINA, UPDATED PT'S CLINICAL AND HE PROVIDE AUTH # [id number] FOR HOSPITALS STAY.
--- NOTE | 2021-02-12 11:54 | NUR ---
BAG DELIVERED TO SERVICE NOW DEVELOPER CONTAINING MEDICATIONS, TABLET AND BOILERMAKING SUPERVISOR. HANDED TO PT TO REVIEW CONTENTS PRIOR TO OPENING BAG. PT WILL GO THROUGH CONTENTS AND INFORM ME WHICH MEDICATIONS HE IS CURRENTLY TAKING.
--- NOTE | 2021-02-12 12:39 | NUR ---
SPOKE TO PHARMACISTS, NOTIFIED HER PT FAMILY DROPPED OFF HOME MEDS, PER PHARMACIST, WE HAVE THE LIST ON FILE. ASK FAMILY TO TAKE BOTTLES HOME. CONVEYED TO PT.
[2021-02-12] MEDS ORDERED: MIRT-91 PO (12:47)
--- NOTE | 2021-02-12 13:13 | NUR ---
WITH PERMISSION FROM PT.: SPOKE TO STEP DAUGHTER IVELISSE PEPE RE: PT'S HEALTH STATUS.
--- NOTE | 2021-02-12 14:34 | NUR ---
PT STABLE, NO SIGN OF DISTRESS. DENIES PAIN AT THIS TIME
--- NOTE | 2021-02-12 15:25 | NUR ---
NOTED L.AC 18G BLOODY DRESSING, ATTEMPTED TO FLUSH WITH NS, BEGAN LEAKING, REMOVED TRANSPARENT DRESSING TO CLEAN AND ASSESS PLACEMENT, FLUSHED ONCE MORE WITH NS AND CONTINUE TO LEAK SALINE AT INSERTION. REMOVED IV CATHETER INTACT. APPLIED PRESSURE X2 MINUTES. APPLIED 2X2 AND TAPE. PT TOLERATE PROCEDURE WELL. DENIED PAIN AT IV SITE.
--- NOTE | 2021-02-12 16:33 | NUR ---
ADMINISTERED NEW BAG OF NS AT 75ML/HR. PT TOLERATED PROCEDURE WELL. PT DENIES ANY CHEST PAIN OR DISCOMFORT AT THIS TIME
--- NOTE | 2021-02-12 17:09 | NUR ---
HEART RATE DECREASED TO 50 BPM, DISCONTINUED AMIODARONE DRIP, WILL CONTACT DR LUO FOR FURTHER INSTRUCTIONS
--- NOTE | 2021-02-12 17:12 | NUR ---
SPOKE WITH WOODROW ESTRADA, NEW ORDER FOR METOPROLOL RECEIVED.
--- NOTE | 2021-02-12 17:25 | NUR ---
INFORMED PT AMIODARONE DRIP IS TO BE DISCONTINUED AND TREATMENT HAS CHANGED TO PO MEDICATION PER MD. PT VERBALIZED UNDERSTANDING. INQUIRING ABOUT DISCHARGE DATE, DISCUSSED WITH PT THE BENEFITS OF HOSPITALIZATION AND MONITORING, PHYSICIAN WILL DISCHARGE ONCE HE HAS DEEMED HIM STABLE ENOUGH TO GO HOME. PT VERBALIZED UNDERSTANDING.
--- NOTE | 2021-02-12 18:10 | NUR ---
DR. Arturo LUO AT BEDSIDE
--- NOTE | 2021-02-12 19:13 | NUR ---
ENDORSED PT TO SADDLE STITCHER NURSE FOR CONTINUITY OF CARE. PT STABLE, NO SIGN OF DISTRESS. ENDORSED TO NURSE PT HAS HOME MEDICATIONS AT BEDSIDE AND WILL NEED TO RETURN THEM HOME. PT IS AWARE TO NOT TAKE MEDICATIONS HERE.
--- NOTE | 2021-02-12 19:35 | NUR ---
RECEIVED PT FROM DAY SHIFT TR Addendum: 02/13/21 at 0708 by Charles Rodriguez RN RECEIVED PT FROM DAY SHIFT RN; PT AWAKE ALERT ORIENTED X4, FOLLOWING COMMANDS. SR ON MONITOR, NO EDEMA NOTED. DENIES CP/SOB. LUNGS CLEAR. ABD SOFT NON DISTENDED. DENIES N/V/D. SKIN INTACT. IV R AC 18 G INTACT PATENT. BED LOCKED IN LOWEST POSITION. WILL CONTINUE TO MONITOR.
[2021-02-13] VITALS: BP 124/38
--- NOTE | 2021-02-13 | NUR ---
PT HAS EYES CLOSED; AROUSABLE, DENIES CP/SOB. NO S/S OF DISTRESS NOTED. WILL CONTINUE TO OBSERVE
[2021-02-13 04:00] VITALS: BP 141/78
--- NOTE | 2021-02-13 04:30 | NUR ---
PT AWAKE SITTING UP IN BED, REFUSED AM CARE THIS AM NO ACUTE DISTRESS NOTED. WILL CONTINUE TO MONITOR.
[2021-02-13] MEDS: LEVOTHYROXINE 0.075 MG TAB PO SCH (06:30)
--- NOTE | 2021-02-13 07:29 | NUR ---
REPORT GIVEN TO DAY SHIFT FOR CONTINUITY OFCARE
[2021-02-13 08:00] VITALS: BP 108/60
--- NOTE | 2021-02-13 08:55 | NUR ---
DR. RENE AT BEDSIDE PT. IS AWAKE ALERT FOLLOW COMMAND.
[2021-02-13] MEDS: PANTOPRAZOLE 40 MG INJ VIAL IVP SCH (09:00)
[2021-02-13] MEDS: NICOTINE TRANSD SYS 21 MG/24 HR PATCH TD SCH (09:00)
[2021-02-13] MEDS: METOPROLOL 25 MG TAB PO SCH (09:00)
[2021-02-13] MEDS: DOCUSATE SODIUM 100 MG GELCAP PO SCH (09:00)
[2021-02-13 10:00] VITALS: BP 148/86
[2021-02-13 11:22] LABS: BASOPHILS % (AUTO) 0.3 % (0.0-2.0); EOSINOPHILS # (AUTO) 0.2 K/uL (0-0.4); EOSINOPHILS % (AUTO) 1.9 % (0.0-4.0); HEMATOCRIT 37.7 % (36-52); HEMOGLOBIN 13.1 g/dL (12.0-18.0); LYMPHOCYTES # (AUTO) 1.3 K/uL (2.0-11.5); LYMPHOCYTES % (AUTO) 12.6 % (20.5-51.1); MEAN CORPUSCULAR HEMOGLOBIN 32 pg (27-31); MEAN CORPUSCULAR HGB CONC 35 g/dL (33-37); MEAN CORPUSCULAR VOLUME 92.1 fL (80-94); MONOCYTES # (AUTO) 0.6 K/uL (0.8-1.0); MONOCYTES % (AUTO) 5.4 % (1.7-9.3); NEUTROPHILS # (AUTO) 8.4 K/uL (1.8-7.7); NEUTROPHILS % (AUTO) 79.8 % (42.2-75.2); PLATELET COUNT (AUTO) 220 K/uL (140-450); RED BLOOD CELL COUNT(AUTO) 4.09 MIL/uL (4.20-6.10); RED CELL DISTRIBUTION WIDTH 13.3 % (11.6-13.7); WHITE BLOOD COUNT (AUTO) 10.5 K/uL (4.8-10.8)
[2021-02-13 11:44] LABS: FREE T4 (FREE THYROXINE) 0.87 ng/dL (0.76-1.46); THYROID STIMULATING HORMONE 5.93 uIU/mL (0.34-3.74)
--- NOTE | 2021-02-13 11:45 | NUR ---
DR. FISCHER AT BEDSIDE D/C TO HOME CARE RECEIVED
[2021-02-13 11:52] LABS: ALBUMIN 3.3 g/dL (3.4-5.0); ANION GAP 9.8 (8-16); ASPARTATE AMINOTRANSFERASE 12 U/L (15-37); CHLORIDE 104 mmol/L (98-107); CREATININE 0.8 mg/dL (0.6-1.3); GLUCOSE 105 mg/dL (74-106); POTASSIUM 3.8 mmol/L (3.5-5.1); SODIUM SERUM 140 mmol/L (136-145); TOTAL BILIRUBIN 0.5 mg/dL (0.0-1.0); UREA NITROGEN, BLOOD 13 mg/dL (7-18)
[2021-02-13 11:55] LABS: MAGNESIUM 1.9 mg/dL (1.8-2.4)
[2021-02-13 11:56] LABS: CHOL/HDL RATIO 5.8 (1-4.5); PHOSPHORUS 2.8 mg/dL (2.5-4.9)
[2021-02-13 12:00] VITALS: BP 130/65
--- NOTE | 2021-02-13 12:00 | NUR ---
EEG DONE PT AWAKD AND ALERT FOLLOW COMMAND. HAS NO COMPLAIN
[2021-02-13 13:00] VITALS: BP 127/73
--- NOTE | 2021-02-13 13:00 | NUR ---
LUNCH TOOK 100%
--- NOTE | 2021-02-13 13:45 | NUR ---
D/C IV AND EKG PT GET DRESS.
--- NOTE | 2021-02-13 14:15 | NUR ---
WHEELED PT TO PRIVATE CAR THAT COOK HELPER FRUIT BY HIS BROTHER DIALLO.
== END 2021-02-13 14:50 | disposition home or self-care (01) | DRG 310 ==
LOC: MED 21:08 → MIC 02-12 00:26
PROVIDERS: ADMIT Internal Medicine; ATTEND Internal Medicine
DX: I48.0 Paroxysmal atrial fibrillation (principal); E03.9 Hypothyroidism, unspecified; F17.210 Nicotine dependence, cigarettes, uncomplicated; Z20.822 Contact with and (suspected) exposure to COVID-19; I11.9 Hypertensive heart disease without heart failure; I48.20 Chronic atrial fibrillation, unspecified; Z79.01 Long term (current) use of anticoagulants; Z85.46 Personal history of malignant neoplasm of prostate
CPT/HCPCS: 36415; 71045; 74018; 80053; 80305; 81001; 83036; 83690; 83735; 83880; 84100; 84439; 84443; 84484; 85025; 85610; 85730; 87081; 93005; 96361; 96365; 96374; 96375; 99291; C9113; J0282; J3490; J7030; J7060

== ENCOUNTER 2022-04-02 20:00 | Observation (INO) | payer OTHER ==
[~2022-04-02] VITALS: Ht 177.8 cm; Wt 61.2 kg
[~2022-04-02 20:00] MED LIST changes: +MIRT-91 PO
[2022-04-02 20:12] VITALS: BP 106/65
--- NOTE | 2022-04-02 20:18 | NUR ---
PT TAKEN TO BED 12
[2022-04-02] MEDS ORDERED: DILTIAZEM 25 MG/5 ML VIAL IVP ONE ×2 (20:20→22:20)
[2022-04-02] MEDS ORDERED: DILTIAZEM 30 MG TAB PO ONE (20:20)
--- NOTE | 2022-04-02 20:32 | NUR ---
Dr. Lagos examining patient.
[2022-04-02 20:46] LABS: BASOPHILS % (AUTO) 0.5 % (0.0-2.0); EOSINOPHILS # (AUTO) 0.2 K/uL (0-0.4); EOSINOPHILS % (AUTO) 2.1 % (0.0-4.0); HEMATOCRIT 43.2 % (36-52); LYMPHOCYTES % (AUTO) 22.7 % (20.5-51.1); MEAN CORPUSCULAR HEMOGLOBIN 32 pg (27-31); MEAN CORPUSCULAR HGB CONC 35 g/dL (33-37); MEAN CORPUSCULAR VOLUME 91.6 fL (80-94); MONOCYTES # (AUTO) 0.5 K/uL (0.8-1.0); MONOCYTES % (AUTO) 5.7 % (1.7-9.3); PLATELET COUNT (AUTO) 247 K/uL (140-450); RED BLOOD CELL COUNT(AUTO) 4.71 MIL/uL (4.20-6.10); RED CELL DISTRIBUTION WIDTH 13.5 % (11.6-13.7); WHITE BLOOD COUNT (AUTO) 8.6 K/uL (4.8-10.8)
[2022-04-02 21:26] LABS: ANION GAP 11.1 (8-16); ASPARTATE AMINOTRANSFERASE 12 U/L (15-37); CARBON DIOXIDE 27.3 mmol/L (21-32); CHLORIDE 103 mmol/L (98-107); CREATININE 0.9 mg/dL (0.6-1.3); GLUCOSE 137 mg/dL (74-106); POTASSIUM 3.4 mmol/L (3.5-5.1); SODIUM SERUM 138 mmol/L (136-145); THYROID STIMULATING HORMONE 4.29 uIU/mL (0.34-3.74); TOTAL BILIRUBIN 0.6 mg/dL (0.0-1.0); UREA NITROGEN, BLOOD 14 mg/dL (7-18)
--- NOTE | 2022-04-02 22:02 | NUR ---
patient BP dropped to 90s/50s, patient reported some dizziness. ER MD made aware.
--- NOTE | 2022-04-02 22:07 | NUR ---
swabbed patient and given to photographic laboratory supervisor
[2022-04-02] MEDS ORDERED: NACL 0.9% 500 ML IV ONE (22:20)
[2022-04-02 22:21] LABS: PROTHROMBIN TIME 9.9 secs (10.8-13.4)
[2022-04-02 22:22] LABS: MAGNESIUM 1.8 mg/dL (1.8-2.4); PHOSPHORUS 2.5 mg/dL (2.5-4.9)
[2022-04-02] MEDS: METOPROLOL 25 MG TAB PO SCH (22:40)
[2022-04-02] MEDS ORDERED: MAGNESIUM OXIDE 400 MG TAB PO PRN (22:40)
[2022-04-02] MEDS ORDERED: POTASSIUM CHLORIDE 10 MEQ TABER PO PRN (22:40)
[2022-04-02] MEDS ORDERED: METOPROLOL 5 MG/5 ML VIAL IVP PRN (22:40)
[2022-04-02] MEDS ORDERED: POTASSIUM CHL 40 MEQ/ D5-1/2NS 1,000 ML IV SCH (22:40)
[2022-04-02] MEDS ORDERED: HYDROcodone/APAP 5/325 MG 1 TAB TAB PO PRN (22:40)
[2022-04-02] MEDS ORDERED: MORPHINE SULFATE 4 MG/ML SYR IVP PRN (22:40)
[2022-04-02] MEDS ORDERED: ONDANSETRON 4 MG/2 ML VIAL IVP PRN (22:40)
[2022-04-02] MEDS ORDERED: NACL 0.9% 1,000 ML IV SCH (22:40)
[2022-04-02] MEDS ORDERED: ACETAMINOPHEN 325 MG TAB PO PRN (22:40)
[2022-04-02] MEDS ORDERED: HYDROmorphone 1 MG/ML AMP IVP PRN (22:40)
--- NOTE | 2022-04-02 23:17 | NUR ---
SPOKE WITH COLOR ARTIST SHAWNEE ABOUT PATIENT INFORMATION
--- NOTE | 2022-04-02 23:44 | NUR ---
PATIENT TX TO THE FLOOR VIA RGILBERTO
--- NOTE | 2022-04-02 23:48 | NUR ---
Patient will be admitted to care of Dr. Staton. Admited to Telemetry. Will go to room 105A. Belongings list completed. Report to Radha ALVARADO.
--- NOTE | 2022-04-02 23:50 | NUR ---
PT WAS BROUGHT TO [facility] FROM [facility]. PT IS AMBULATORY, AOX4, DX OF A. FIB AND RAPID VENTRICULAR RATE. PT IS ABLE TO COMPREHEND, VERBALIZE NEEDS AND ABLE TO FOLLOW COMMANDS. PT IS ON ROOM AIR WITH UNCONTROLLED A. FIB RHYTHM. PT HAS 0-2 APPETITE AND ON CARDIAC DIET. PT HAS A SALINE LOCK ON LEFT UPPER ARM GAUGE 20. PT WAS ORIENTED TO HOSPITAL ROOM, BED BUTTONS AND CALL LIGHT. ALL SAFETY MEASURES IMPLEMENTED. CALL LIGHT WITHIN REACH.
--- NOTE | 2022-04-03 02:00 | NUR ---
PT IS ON SLEEP. CHEST RISE AND FALL SYMMETRICALLY NOTED. RESPIRATION IS EVEN AND UNLABORED BREATHING. NO S/S DISTRESS NOTED. CALL LIGHT WITHIN REACH. ALL SAFETY MEASURES IMPLEMENTED. WILL CONTINUE TO MONITOR.
[2022-04-03 04:00] VITALS: BP 99/68
[2022-04-03] MEDS: DILTIAZEM 30 MG TAB PO SCH ×2 (05:00→13:26)
--- NOTE | 2022-04-03 05:00 | NUR ---
PATIENT BP-99/68 P-81, NOTIFIED DR. WATT WITH ORDER TO HOLD CARDIZEM.
[2022-04-03 06:52] LABS: ALBUMIN 3.2 g/dL (3.4-5.0); ANION GAP 7.7 (8-16); ASPARTATE AMINOTRANSFERASE 12 U/L (15-37); CARBON DIOXIDE 29.9 mmol/L (21-32); CHLORIDE 109 mmol/L (98-107); CREATININE 0.9 mg/dL (0.6-1.3); GLUCOSE 130 mg/dL (74-106); POTASSIUM 4.6 mmol/L (3.5-5.1); SODIUM SERUM 142 mmol/L (136-145); TOTAL BILIRUBIN 0.4 mg/dL (0.0-1.0); UREA NITROGEN, BLOOD 14 mg/dL (7-18)
--- NOTE | 2022-04-03 07:30 | NUR ---
RECEIVED REPORT FROM RESEARCH ASSISTANT MEMBER. PT IN BED WITH HOB ELEVATED. AOX4, ABLE TO MAKE NEEDS KNOWN. NO SOB ON ROOM AIR. NO C/O PAIN AT THIS TIME. SINUS RHYTHM ON THE MONITOR HR 61. WITH IV ON ANTWAN 20G RUNNING D5 1/2NS WITH 40 MEQ POTASSIUM 80ML/HR. AMBULATORY AND CONTINENT. SKIN INTACT. CALL LIGHT WITHIN REACH. POC DISCUSSED
--- NOTE | 2022-04-03 07:31 | NUR ---
PT IS STABLE. ENDORSED PT TO MORNING SHIFT NURSE FOR CONTINUITY OF CARE.
[2022-04-03 08:00] VITALS: BP 96/56
[2022-04-03] MEDS: METOPROLOL 25 MG TAB PO SCH (08:50)
[2022-04-03] MEDS ORDERED: APIXABAN 2.5 MG TAB PO SCH (09:00)
--- NOTE | 2022-04-03 09:00 | NUR ---
DUE MEDS GIVEN, TOLERATED WELL
--- NOTE | 2022-04-03 11:20 | NUR ---
PT RESTING IN BED, NO C/O PAIN, NO SOB, SR TO SB ON MONITOR
[2022-04-03 12:00] VITALS: BP 118/69
--- NOTE | 2022-04-03 12:00 | NUR ---
SEEN AND EXAMINED BY DR LUO. CLEARED PT FOR DISCHARGE
--- NOTE | 2022-04-03 14:00 | NUR ---
DISCHARGE INSTRUCTIONS GIVEN. PT VERBALIZED UNDERSTANDING. PT INSISTED ON WAITING IN THE FRONT LOBBY. ASSISTED PT TO FRONT LOBBY
[2022-04-03 14:16] LABS: FREE T4 (FREE THYROXINE) 0.98 ng/dL (0.76-1.46); THYROID STIMULATING HORMONE 4.58 uIU/mL (0.34-3.74)
== END 2022-04-03 14:35 | disposition home or self-care (01) ==
LOC: MED 20:00 → MTU 22:38
PROVIDERS: ADMIT Student in an Organized Health Care Education/Training Program; ATTEND Student in an Organized Health Care Education/Training Program
DX: I48.20 Chronic atrial fibrillation, unspecified (principal); Z20.822 Contact with and (suspected) exposure to COVID-19; I10 Essential (primary) hypertension; F17.210 Nicotine dependence, cigarettes, uncomplicated; R07.89 Other chest pain; Z79.899 Other long term (current) drug therapy
CPT/HCPCS: 36415; 71045; 80053; 83735; 83880; 84100; 84439; 84443; 84484; 85025; 85610; 85730; 87081; 87426; 93005; 96361; 96374; 96376; 99291; G0378; J3490; J7030; Q0092

== ENCOUNTER 2024-07-20 04:46 | Inpatient (IN) | payer MEDICARE, OTHER ==
[~2024-07-20] VITALS: Ht 177.8 cm; Wt 64.4 kg
[~2024-07-20 04:46] MED LIST changes: -AMLO5TAB PO; -METO-747 PO; +METO50TE63 PO; +MIRT-120 PO; -MIRT-91 PO
[2024-07-20 04:58] VITALS: BP 80/57; PULSE 160; RESP 22; TEMP 97.6; O2SAT 96
[2024-07-20 05:20] LABS: BASOPHILS # (AUTO) 0.1 K/uL (0.00-0.22); BASOPHILS % (AUTO) 0.9 % (0.0-2.0); EOSINOPHILS # (AUTO) 0.1 K/uL (0-0.4); EOSINOPHILS % (AUTO) 1.6 % (0.0-4.0); HEMOGLOBIN 14.5 g/dL (12.0-18.0); LYMPHOCYTES # (AUTO) 2.2 K/uL (2.0-11.5); LYMPHOCYTES % (AUTO) 25.3 % (20.5-51.1); MEAN CORPUSCULAR HEMOGLOBIN 32 pg (27-31); MEAN CORPUSCULAR HGB CONC 35 g/dL (33-37); MEAN CORPUSCULAR VOLUME 91.8 fL (80-94); MONOCYTES # (AUTO) 0.5 K/uL (0.8-1.0); MONOCYTES % (AUTO) 5.2 % (1.7-9.3); NEUTROPHILS # (AUTO) 5.9 K/uL (1.8-7.7); PLATELET COUNT (AUTO) 231 K/uL (140-450); RED BLOOD CELL COUNT(AUTO) 4.57 MIL/uL (4.20-6.10); RED CELL DISTRIBUTION WIDTH 14.1 % (11.6-13.7); WHITE BLOOD COUNT (AUTO) 8.7 K/uL (4.8-10.8)
[2024-07-20] MEDS: NACL 0.9% 1,000 ML IV ONE (05:22)
[2024-07-20] MEDS: VERAPAMIL 5 MG/2 ML VIAL IVP ONE ×2 (05:22→06:10)
[2024-07-20 06:20] LABS: ANION GAP 9.7 (8-16); CALCIUM 9.5 mg/dL (8.5-10.1); CARBON DIOXIDE 27.4 mmol/L (21-32); CHLORIDE 102 mmol/L (98-107); CREATININE 0.9 mg/dL (0.6-1.3); GLUCOSE 134 mg/dL (74-106); POTASSIUM 4.1 mmol/L (3.5-5.1); SODIUM SERUM 135 mmol/L (136-145); UREA NITROGEN, BLOOD 12 mg/dL (7-18)
[2024-07-20] MEDS: DILTIAZEM 25 MG/5 ML VIAL IVP ONE (07:09)
[2024-07-20] MEDS: DILTIAZEM 30 MG TAB PO ONE (07:47)
[2024-07-20] MEDS ORDERED: MORPHINE SULFATE 2 MG/ML SYR IVP PRN (08:15)
[2024-07-20] MEDS: NACL 0.9% 1,000 ML IV SCH (08:15)
[2024-07-20] MEDS ORDERED: ONDANSETRON 4 MG/2 ML VIAL IVP PRN (08:15)
[2024-07-20] MEDS ORDERED: ACETAMINOPHEN 325 MG TAB PO PRN (08:15)
[2024-07-20] MEDS ORDERED: cefTRIAXone 1,000 MG VIAL ONE (08:26)
[2024-07-20 08:41] LABS: PHOSPHORUS 3.3 mg/dL (2.5-4.9); THYROID STIMULATING HORMONE 3.07 uIU/mL (0.34-3.74)
[2024-07-20] MEDS ORDERED: AZITHROMYCIN 500 MG INJ VIAL IV ONE (08:55)
[2024-07-20 09:00] VITALS: PULSE 107; RESP 18; O2SAT 97
[2024-07-20] MEDS: AZITHROMYCIN 500 MG in DEXTROSE 5% 250 ML IV ONE (09:12)
[2024-07-20 12:00] VITALS: BP 107/48; PULSE 122; PULSE 58; RESP 20; TEMP 97; O2SAT 100
[2024-07-20] MEDS ORDERED: RIVAROXABAN 10 MG TAB PO SCH (13:40)
[2024-07-20] MEDS ORDERED: AMIODARONE 200 MG TAB PO SCH (13:43)
[2024-07-20] MEDS ORDERED: RIVA15TA1 PO (13:52)
[2024-07-20] MEDS ORDERED: AMIO200T62 PO (13:52)
[2024-07-20 13:59] VITALS: BP 107/48; PULSE 122; RESP 20; TEMP 97
[2024-07-20] MEDS ORDERED: METOPROLOL 25 MG TAB PO SCH (21:00)
[2024-07-21] MEDS ORDERED: AMIODARONE 200 MG TAB PO SCH (09:00)
[2024-07-21] MEDS ORDERED: AZITHROMYCIN 500 MG in DEXTROSE 5% 250 ML IV SCH (09:00)
== END 2024-07-20 16:17 | disposition home or self-care (01) | DRG 310 ==
LOC: MED 04:46 → MTU 08:16
PROVIDERS: ADMIT Hospitalist; ATTEND Hospitalist
DX: I48.0 Paroxysmal atrial fibrillation (principal); E03.9 Hypothyroidism, unspecified; Z79.899 Other long term (current) drug therapy
CPT/HCPCS: 36415; 71045; 80048; 83605; 83735; 83880; 84100; 84443; 84484; 85025; 87040; 93005; 96361; 96365; 96375; 99285; J0456; J0696; J3490; J7060; Q0092